=== PATIENT | female | born 1945 | race Caucasian/White ===

== ENCOUNTER → 2017-02-06 | Outpatient (CLI) | payer BC ==
[~2017-02-06] MED LIST: ASPIRIN 32325 MG/TAB PO; BETAPACE 80MG80 MG PO; CEPHALEXIN500 M1 PO; COUMADIN 1MG1 MG/TAB PO; GLUCOSAMINE & C1 CA1 PO; GLUCOSAMINE SU750 MG PO; LUTEIN20 MG PO; MAREPA1200 MG PO; TAMBOCOR 1100 MG/TAB PO; TOPROL XL 25MG25 MG PO; VITAMIN D2000 I1 PO
== END ==
LOC: MC.RAD 10:13
DX: Z12.31 Encounter for screening mammogram for malignant neoplasm of breast (principal)

== ENCOUNTER 2017-11-26 07:34 | Day surgery (SDC) | payer BC ==
[~2017-11-26] VITALS: Ht 165.1 cm; Wt 105.5 kg
[2017-11-26] MEDS ORDERED: ELIQUIS 5MG PO (08:02)
[2017-11-26] MEDS ORDERED: LOPRESSOR 225 MG/TAB PO (08:03)
[2017-11-26] MEDS ORDERED: EPA FISH OIL1 SGL PO (08:04)
[2017-11-26] MEDS ORDERED: GLUCOSAMINE & C1 CA2 PO (08:04)
[2017-11-26 08:17] VITALS: BP 144/51; PULSE 50; TEMP 98.6
== END 2017-11-26 09:32 | disposition home or self-care (01) ==
LOC: COL.CAR 07:34
DX: I48.0 Paroxysmal atrial fibrillation (principal); G47.33 Obstructive sleep apnea (adult) (pediatric); M19.90 Unspecified osteoarthritis, unspecified site; E66.9 Obesity, unspecified; Z96.653 Presence of artificial knee joint, bilateral; Z79.82 Long term (current) use of aspirin; Z80.0 Family history of malignant neoplasm of digestive organs

== ENCOUNTER → 2018-04-30 | Outpatient (CLI) | payer BC ==
[~2018-04-30] MED LIST changes: +ELIQUIS 5MG PO; +EPA FISH OIL1 SGL PO; +GLUCOSAMINE & C1 CA2 PO; +LOPRESSOR 225 MG/TAB PO
== END ==
LOC: COL.VAS 08:48
DX: I48.0 Paroxysmal atrial fibrillation (principal); I08.1 Rheumatic disorders of both mitral and tricuspid valves

== ENCOUNTER → 2018-05-04 | Outpatient (CLI) | payer BC | LOC: COL.PUL 07:46 | DX: Z79.899 Other long term (current) drug therapy (principal) ==

== ENCOUNTER 2019-01-19 08:15 | Day surgery (SDC) | payer BC ==
[~2019-01-19] VITALS: Ht 165.2 cm; Wt 92.8 kg
[2019-01-19] VITALS (7 sets, daily range): BP systolic 111–135; BP diastolic 61–66; PULSE 45–48; TEMP 97.4
[2019-01-19] MEDS ORDERED: SYNTHROID0.112 MG/T PO (08:44)
[2019-01-19] MEDS ORDERED: CALCIUM 600 PLU1 TAB PO (08:50)
[2019-01-19] MEDS ORDERED: TYLENOL 500MG500 MG PO (08:51)
[2019-01-19] MEDS ORDERED: LASIX 40MG TABL40 MG PO (08:51)
[2019-01-19] MEDS ORDERED: ELIQUIS 5MG PO (08:52)
[2019-01-19] MEDS ORDERED: TOPROL XL 25MG25 MG PO (08:52)
[2019-01-19] MEDS ORDERED: PRINIVIL10 MG PO (08:53)
[2019-01-19] MEDS ORDERED: OMEGA-3 FISH1000 MG PO (08:54)
--- NOTE | 2019-01-19 09:39 | NUR ---
SEE MERGE DOCUMENTATION FOR MEDICATION ADMINISTRATION TIMES AND INTRA/POST PROCEDURE SEDATION ASSESSMENTS.
[2019-01-19] MEDS ORDERED: CEPHALEXIN500 M1 PO (09:50)
--- NOTE | 2019-01-19 10:00 | NUR ---
Back from medical laboratory scientist. Alert and oriented. Denies pain and needs at this time. Dressing to middle chest CD&I. VSS
--- NOTE | 2019-01-19 11:05 | NUR ---
VSS. INT discontinued intact. Discharge instructions given. Transferred to private car by jen
== END 2019-01-19 11:10 | disposition home or self-care (01) ==
LOC: COL.CAR 08:15
DX: Z95.818 Presence of other cardiac implants and grafts (principal)
CPT/HCPCS: J0690; J2250; J3010; J7050

== ENCOUNTER → 2019-09-30 | Outpatient (CLI) | payer BC ==
[~2019-09-30] MED LIST changes: +CALCIUM 600 PLU1 TAB PO; +LASIX 40MG TABL40 MG PO; +OMEGA-3 FISH1000 MG PO; +PRINIVIL10 MG PO; +SYNTHROID0.112 MG/T PO; +TYLENOL 500MG500 MG PO
== END ==
LOC: MC.RAD 08-16 11:00
DX: Z12.31 Encounter for screening mammogram for malignant neoplasm of breast (principal)

== ENCOUNTER → 2020-12-07 | Outpatient (CLI) | payer BC | LOC: MC.RAD 09:33 | DX: Z12.31 Encounter for screening mammogram for malignant neoplasm of breast (principal) ==

== ENCOUNTER 2021-03-08 09:01 | Day surgery (SDC) | payer BC ==
[~2021-03-08] VITALS: Ht 165.1 cm; Wt 105.2 kg
[2021-03-08 09:39] VITALS: BP 133/70; PULSE 59; TEMP 98.1
[2021-03-08 10:50] VITALS: BP 101/72; PULSE 48; TEMP 97.6
--- NOTE | 2021-03-08 10:50 | NUR ---
Patient arrived on a cart from the Endo suite. Patient ambulated from the cart to the chair. STEPHENIE Galdamez wrote down the report. Vitals obtained. Cranberry juice and a warm muffin served. Call rosenbaum is within reach.
[2021-03-08 11:05] VITALS: BP 126/65; PULSE 47
--- NOTE | 2021-03-08 11:05 | NUR ---
Vitals obtained. Patient is tolerating her cranberry juice and muffin well. Denies neusea. No vomiting. IV was discontinued at this time due to impending discharge. Catheter tip intact. Pressure dressing applied. No redness or swelilng noted. Patient denied needing assistance changing.
[2021-03-08 11:20] VITALS: BP 127/69; PULSE 48
--- NOTE | 2021-03-08 11:45 | NUR ---
Discharge instructions and educational material was reviewed. The patient verbalized understanding and signed the related paperwork. The patient is currently waiting for her ride.
--- NOTE | 2021-03-08 12:04 | NUR ---
Patient was escorted out to the patient entrence by STEPHENIE Bee via wheelchair. The patient has her discharge packet and personal belongings. The patient was trasnferred into the care of her , who is present to drive.
== END 2021-03-08 12:00 | disposition home or self-care (01) ==
LOC: SDCO 09:01
DX: Z12.11 Encounter for screening for malignant neoplasm of colon (principal); D12.2 Benign neoplasm of ascending colon; D12.3 Benign neoplasm of transverse colon; K57.30 Diverticulosis of large intestine without perforation or abscess without bleeding; E66.9 Obesity, unspecified; E03.9 Hypothyroidism, unspecified; G47.33 Obstructive sleep apnea (adult) (pediatric); M19.90 Unspecified osteoarthritis, unspecified site; I48.0 Paroxysmal atrial fibrillation; Z99.89 Dependence on other enabling machines and devices; Z79.01 Long term (current) use of anticoagulants; Z79.899 Other long term (current) drug therapy; Z79.890 Hormone replacement therapy
CPT/HCPCS: J2704

== ENCOUNTER → 2021-12-12 | Outpatient (CLI) | payer BC | LOC: MC.RAD 13:11 | DX: Z12.31 Encounter for screening mammogram for malignant neoplasm of breast (principal) ==

== ENCOUNTER 2023-06-05 17:04 | Day surgery (SDC) | payer MEDICARE, BC ==
[2023-06-05] VITALS (9 sets, daily range): BP systolic 112–134; BP diastolic 49–97; PULSE 48–55; TEMP 98.2–98.7
[~2023-06-05] VITALS: Ht 165.1 cm; Wt 106.8 kg
[~2023-06-05 17:04] MED LIST changes: -AMOXICILLIN 8751 TAB PO; -Iohexol 300 - 100 ML VIAL IV ONE; -MOTRIN 600600 MG/TAB PO; -NS 100 ML IV SCH; -PERCOCET 325 MG1 TA2 PO
[2023-06-05] MEDS ORDERED: NS 1,000 ML IV ONE (17:15)
[2023-06-05] MEDS ORDERED: Ketorolac 15 MG/ML VIAL IV ONE (17:30)
[2023-06-05 18:04] LABS: BASO % 0.5 % (0.0-2.0); EOS % 0.2 % (0.0-4.0); GRAN # 6.6 K/mm3 (1.4-6.5); HEMATOCRIT 40.2 % (37.0-47.0); HEMOGLOBIN 13.3 g/dl (12.5-16.0); LYMPH % 11.8 % (20.0-51.0); MEAN CELL VOLUME 92 fl (80.0-100.0); MEAN CORPUSCULAR HEMOGLOBIN 31 pg (27-31); MEAN CORPUSCULAR HGB CONC 33 g/dl (33.0-37.0); MEAN PLATELET VOLUME 9.3 fl (7.4-10.4); MONO # 0.7 K/mm3 (0.1-0.6); MONO % 8.1 % (1.7-9.3); PLATELET COUNT 191 K/mm3 (130-400); RED BLOOD COUNT 4.35 M/mm3 (4.10-5.30); REDCELL DISTRIBUTION WIDTH-CV 13.9 % (11.5-14.5)
[2023-06-05 18:20] LABS: ALBUMIN 3.5 g/dL (3.4-4.8); BILIRUBIN,TOTAL 1.4 mg/dL (0.2-1.2); CALCIUM 9.3 mg/dL (8.4-10.2); CREATININE, serum 0.73 mg/dL (0.57-1.11); POTASSIUM 3.9 mEq/L (3.5-4.5); TOTAL PROTEIN 6.9 g/dl (6.2-8.1)
[2023-06-05] MEDS ORDERED: Succinylcholine PF 200 MG/10 ML SYRINGE IV ONE (18:40)
[2023-06-05] MEDS ORDERED: fentaNYL 50 MCG/ML 2 ML VIAL ONE (18:40)
[2023-06-05] MEDS ORDERED: Rocuronium 50 MG/5 ML Multi-Dose VIAL ONE (18:40)
[2023-06-05] MEDS ORDERED: dexAMETHasone 10 MG/ML VIAL ONE (18:41)
[2023-06-05] MEDS ORDERED: NS 10 ML IV ONE (18:41)
[2023-06-05] MEDS ORDERED: Ondansetron 4 MG/2 ML VIAL ONE (18:41)
[2023-06-05] MEDS ORDERED: hydrALAZINE 20 MG/ML 1 ML VIAL IV PRN (18:45)
[2023-06-05] MEDS ORDERED: LR 1,000 ML IV SCH ×2 (18:45→19:00)
[2023-06-05] MEDS ORDERED: Meperidine 50 MG/ML 1 ML VIAL IV PRN (18:45)
[2023-06-05] MEDS ORDERED: fentaNYL 50 MCG/ML 1 ML SYRINGE/VIAL [PACU/SDC ONLY] IV PRN (18:45)
[2023-06-05] MEDS ORDERED: HYDROmorphone 1 MG/1 ML SYRINGE [PACU/SDC ONLY] IV PRN ×2 (18:45)
[2023-06-05] MEDS ORDERED: droPERidol 2.5 MG/ML 2 ML VIAL IV PRN (18:45)
[2023-06-05] MEDS ORDERED: Ondansetron 4 MG/2 ML VIAL IV PRN ×2 (18:45→19:00)
[2023-06-05] MEDS ORDERED: Topical Skin Adhesive 1 EACH (1 ML) TOP ONE ×2 (18:59→19:43)
[2023-06-05] MEDS ORDERED: HYDROmorphone 0.5 MG/0.5 ML SYRINGE IV PRN (19:00)
[2023-06-05] MEDS ORDERED: oxyCODONE/Acetaminophen 5-325 MG TAB PO PRN ×2 (19:00→20:30)
[2023-06-05] MEDS ORDERED: ePHEDrine 50 MG/ML VIAL ONE (19:31)
[2023-06-05] MEDS ORDERED: PERCOCET 325 MG1 TA2 PO (20:05)
[2023-06-05] MEDS ORDERED: MOTRIN 600600 MG/TAB PO (20:05)
[2023-06-05] MEDS ORDERED: AMOXICILLIN 8751 TAB PO (20:06)
[2023-06-05] MEDS ORDERED: Amoxicillin/Clavulanate K+ 875/125 MG TAB PO SCH (20:07)
[2023-06-05] MEDS ORDERED: Ibuprofen 600 MG TAB PO PRN (20:15)
--- NOTE | 2023-06-05 20:22 | NUR ---
Report recieved from STEPHENIE Gonsalez from PACU. All questions answered.
--- NOTE | 2023-06-05 20:48 | NUR ---
Patient arrived to the unit at this time. 3 lap sites closed with glue and CDI visualized with STEPHENIE Gonsalez. Denies any pain at this time. Vital signs obtained. Food and water provided. Assessment and med rec complete. Post-op vitals started. Oriented patient to bed, room, bathroom, and call light. Patients and daughter at bedside. Patient is alert and oriented. Call light and personal items in reach. Bed in low position and bed alarm on.
--- NOTE | 2023-06-05 21:00 | NUR ---
Patient ate a food tray and drinking water with no issues.
--- NOTE | 2023-06-05 21:55 | NUR ---
Patient ambulated in the hallway with no complications and no pain.
[2023-06-05] MEDS ORDERED: Home oxyCODONE/Acetaminophen 5/325 MG #4 TAB/PACK PO ONE (23:15)
--- NOTE | 2023-06-05 23:35 | NUR ---
Patient education provided and all questions answered. Patient verbalized understanding of education. Vital signs obtained. IV to right AC removed. Assissted patient into home clothes. Call light and personal items in reach. Bed in low position.
--- NOTE | 2023-06-06 | NUR ---
Patient left through the ER doors with daughter and all belongings. All 3 abd sites are CDI. Brought down by this nurse. Patient sent with home dose of Percocet. Patient taken home by daughter in vehicle.
[2023-06-06] MEDS ORDERED: Calcium Carb/Vit D3 500 mg-200 Units TAB PO SCH (08:00)
[2023-06-06] MEDS ORDERED: Lisinopril 10 MG TAB PO SCH (09:00)
[2023-06-06] MEDS ORDERED: Omega-3 Fatty Acid Esters (OTC) 1,000 MG CAP PO SCH (09:00)
== END 2023-06-06 | disposition home or self-care (01) ==
LOC: COL.ER 17:04 → SDCO 20:16 → SURG 20:16 → SDCO 06-06 → SURG 06-06
PROVIDERS: Physician Assistant
DX: K35.80 Unspecified acute appendicitis (principal); G47.33 Obstructive sleep apnea (adult) (pediatric)
CPT/HCPCS: OP; G0378; J0690; J1100; J1885; J2405; J2543; J2704; J3010; J7030

== ENCOUNTER → 2023-06-05 | Outpatient (CLI) | payer MEDICARE, BC ==
[~2023-06-05] MED LIST changes: +AMOXICILLIN 8751 TAB PO; +Iohexol 300 - 100 ML VIAL IV ONE; +MOTRIN 600600 MG/TAB PO; +NS 100 ML IV SCH; +PERCOCET 325 MG1 TA2 PO
== END ==
LOC: COL.RAD 16:00
DX: Z01.818 Encounter for other preprocedural examination (principal); K37 Unspecified appendicitis; K44.9 Diaphragmatic hernia without obstruction or gangrene
CPT/HCPCS: Q9967

== ENCOUNTER → 2023-10-21 | Outpatient (CLI) | payer MEDICARE, BC ==
[~2023-10-21] MED LIST changes: +AMOXICILLIN 8751 TAB PO; +MOTRIN 600600 MG/TAB PO; +PERCOCET 325 MG1 TA2 PO
== END ==
LOC: MC.RAD 10:31
DX: Z12.31 Encounter for screening mammogram for malignant neoplasm of breast (principal)